=== PATIENT | female | born 1980 | race Caucasian/White ===

== ENCOUNTER 2018-09-21 20:33 | Outpatient (CLI) | payer OTHER ==
[2018-09-21] MEDS ORDERED: PRENATAL TABLE1 EAC1 PO (20:46)
[2018-09-21] MEDS ORDERED: CLONAZEPAM0.5 M1 PO (20:49)
== END 2018-09-22 09:30 | disposition home or self-care (01) ==
LOC: OBS/DEL 20:33
DX: O47.1 False labor at or after 37 completed weeks of gestation (principal); Z34.02 Encounter for supervision of normal first pregnancy, second trimester

== ENCOUNTER 2018-11-14 10:57 | Outpatient (CLI) | payer OTHER ==
[~2018-11-14 10:57] MED LIST: CLONAZEPAM0.5 M1 PO; PRENATAL TABLE1 EAC1 PO
== END 2018-11-14 11:46 | disposition home or self-care (01) ==
LOC: NST 10:57
DX: Z34.83 Encounter for supervision of other normal pregnancy, third trimester (principal)

== ENCOUNTER 2018-11-27 17:07 | Inpatient (IN) | payer OTHER ==
[~2018-11-27] VITALS: Ht 149.9 cm; Wt 59.9 kg
== END 2018-12-01 09:54 | disposition home or self-care (01) | DRG 832 ==
LOC: NST 17:07 → OB/GYN 17:44 → LDR 17:44 → OB/GYN 11-29 11:57
PROVIDERS: ADMIT Obstetrics & Gynecology Maternal & Fetal Medicine
PROC: 4A1HXCZ Monitoring of Products of Conception, Cardiac Rate, External Approach (ICD-10-PCS; principal; 2018-11-27)
DX: O60.03 Preterm labor without delivery, third trimester (principal); O99.413 Diseases of the circulatory system complicating pregnancy, third trimester; Z34.03 Encounter for supervision of normal first pregnancy, third trimester; R00.0 Tachycardia, unspecified

== ENCOUNTER 2018-12-11 11:21 | Outpatient (CLI) | payer OTHER | END 2018-12-11 12:43 | disposition home or self-care (01) | LOC: NST 11:21 | DX: Z34.83 Encounter for supervision of other normal pregnancy, third trimester (principal) ==

== ENCOUNTER 2018-12-26 08:47 | Inpatient (IN) | payer OTHER ==
[~2018-12-26] VITALS: Ht 149.9 cm; Wt 60.3 kg
[2018-12-26] MEDS ORDERED: IRON325 MG PO (14:57)
[2018-12-26] MEDS ORDERED: TOPROL XL50 M1 PO (15:02)
[2018-12-26] MEDS ORDERED: NIFE60TA3 PO (15:04)
[2018-12-26] MEDS ORDERED: PROGESTERONE200 MG VAG (15:09)
== END 2018-12-30 12:38 | DRG 833 ==
LOC: NST 08:47 → LDR 09:38 → OB/GYN 09:38
PROVIDERS: ADMIT Obstetrics & Gynecology Maternal & Fetal Medicine
PROC: 4A1HXCZ Monitoring of Products of Conception, Cardiac Rate, External Approach (ICD-10-PCS; principal; 2018-12-26)
DX: O60.03 Preterm labor without delivery, third trimester (principal); Z34.03 Encounter for supervision of normal first pregnancy, third trimester

== ENCOUNTER 2019-01-11 14:45 | Inpatient (IN) | payer OTHER ==
[~2019-01-11] VITALS: Ht 149.9 cm; Wt 62.6 kg
[~2019-01-11 14:45] MED LIST changes: +IRON325 MG PO; +NIFE60TA3 PO; +PROGESTERONE200 MG VAG; +TOPROL XL50 M1 PO
== END 2019-02-03 14:23 | disposition home or self-care (01) | DRG 788 ==
LOC: LDR 01-31 07:14 → OB/GYN 01-31 20:19
PROVIDERS: ADMIT Obstetrics & Gynecology Maternal & Fetal Medicine
PROC: 10907ZC Drainage of Amniotic Fluid, Therapeutic from Products of Conception, Via Natural or Artificial Opening (ICD-10-PCS; 2019-01-31)
PROC: 3E033VJ Introduction of Other Hormone into Peripheral Vein, Percutaneous Approach (ICD-10-PCS; 2019-01-31)
PROC: 4A1HXCZ Monitoring of Products of Conception, Cardiac Rate, External Approach (ICD-10-PCS; 2019-01-31)
PROC: 10D00Z1 Extraction of Products of Conception, Low, Open Approach (ICD-10-PCS; principal; 2019-01-31 17:00)
DX: O82 Encounter for cesarean delivery without indication (principal); O61.0 Failed medical induction of labor; O76 Abnormality in fetal heart rate and rhythm complicating labor and delivery; Z3A.39 39 weeks gestation of pregnancy; Z37.0 Single live birth

== ENCOUNTER 2019-01-16 11:55 | Outpatient (CLI) | payer OTHER | END 2019-01-16 12:28 | disposition home or self-care (01) | LOC: NST 11:55 | DX: Z34.83 Encounter for supervision of other normal pregnancy, third trimester (principal) ==

== ENCOUNTER 2019-01-19 10:51 | Outpatient (CLI) | payer OTHER | END 2019-01-19 11:37 | disposition home or self-care (01) | LOC: NST 10:51 | DX: Z34.83 Encounter for supervision of other normal pregnancy, third trimester (principal) ==

== ENCOUNTER 2019-01-26 10:11 | Outpatient (CLI) | payer OTHER | END 2019-01-26 11:16 | disposition home or self-care (01) | LOC: NST 10:11 | DX: Z34.83 Encounter for supervision of other normal pregnancy, third trimester (principal) ==